=== PATIENT | male | born 1960 | race Caucasian/White ===

== ENCOUNTER 2017-04-12 13:25 | Observation (INO) | payer OTHER ==
[~2017-04-12] VITALS: Ht 172.7 cm; Wt 67.1 kg
[2017-04-12] MEDS ORDERED: Ondansetron 2 mg/mL 2 mL Inj IVPUSH ONE (13:30)
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
[2017-04-12 13:44] LABS: BASOPHILS % (AUTO) 0.3 % (0-3); EOSINOPHILS % (AUTO) 0.5 % (0-5); MONOCYTES % (AUTO) 6.2 % (4-12); Mean Corpuscular Hemoglobin 32.8 pg (27.0-35.0); Mean Corpuscular Volume 92.9 fL (81-100); NEUTROPHILS % (AUTO) 74.5 % (40-74); Platelet Count 189 bil/L (150-400)
[2017-04-12] MEDS ORDERED: TdaP Vaccine 0.5 mL Inj IM ONE (13:45)
[2017-04-12] MEDS ORDERED: Lidocaine-Epi-Tetracaine Solution 3 mL Syringe TOPICAL ONE (13:45)
[2017-04-12 13:58] LABS: INR 0.95 ratio
[2017-04-12] MEDS: fentaNYL-PF 50 mCg/mL 2 mL Inj IVPUSH PRN ×2 (14:00→14:43)
[2017-04-12 14:03] LABS: Magnesium 1.9 mg/dL (1.6-2.6)
--- NOTE | 2017-04-12 14:22 | DRSVH ---
PROCEDURE: CT BRAIN WITHOUT CONTRAST ([id number]) INDICATIONS: trauma TECHNIQUE: Noncontrast 4.5 mm thick angled axial sections acquired from the foramen magnum to the vertex, with c oronal reformats. COMPARISON: None. FINDINGS: Image quality: Excellent. CSF spaces: Basal cisterns are patent. No extra-axial fluid collections. Ventricles are normal in size and shape. Brain: No midline shift. No intracranial masses or hemorrhage. Davila-white matter interface is norm al. Skull and face: Calvarium and visualized facial bones are intact, without suspicious lesions. Sinuses: Visualized sinuses and mastoids are clear except for what is likely chronic opacification o f the right maxillary sinus, which is relatively small when compared to the normal appearance on the left.. IMPRESSION: No bradycardic kable injury found. Forehead contusion to the soft tissues. 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 No skull fracture amandaun d. Dictated by: Remigio Martínez M.D. on 04/12/2017 at 14:19 Approved by: Remigio Martínez M.D. on 04/12/2017 at 14:21
--- NOTE | 2017-04-12 14:24 | DRSVH ---
PROCEDURE: CT CERVICAL SPINE WITHOUT CONTRAST ([id number]) INDICATIONS: trauma TECHNIQUE: Noncontrast 3 mm thick sections acquired from the skull base to the T4 level. Sagittal and coronal r eformats were then constructed. For radiation dose reduction, the following was used: automated exp osure control, adjustment of mA and/or kV according to patient size. COMPARISON: None. FINDINGS: Image quality: Excellent. Bones: No fractures or dislocations. Visualized superior ribs are intact. Soft tissues: Prevertebral soft tissues are normal in thickness. No paravertebral hematomas. No ap ical pneumothoraces. IMPRESSION: Mid cervical moderate degenerative disc disease and mild to moderate spinal stenosis but no fracture or traumatic subluxation is found. Dictated by: Remigio Martínez M.D. on 04/12/2017 at 14:21 Approved by: Remigio Martínez M.D. on 04/12/2017 at 14:22
--- NOTE | 2017-04-12 14:28 | DRSVH ---
PROCEDURE: CT CHEST, ABDOMEN AND PELVIS WITH CONTRAST ([id number]) INDICATIONS: trauma TECHNIQUE: After the administration of intravenous contrast, 5 mm thick sections acquired from the lung apices t o the symphysis. 5 mm thick coronal and sagittal reformats were acquired. Additional 7 mm thick cor onal maximum intensity projection (MIP) reformats acquired through the lungs. Optional 10-minute del ayed imaging may be performed from the kidneys to the bladder. For radiation dose reduction, the fol lowing was used: automated exposure control, adjustment of mA and/or kV according to patient size. COMPARISON: None. FINDINGS: Image quality: Excellent. CHEST: Lungs: No pulmonary contusions or lacerations. No acute airspace opacities. No pneumothorax or hem othorax. Central and peripheral airways appear patent and normal in caliber. Mediastinum: No mediastinal hematomas. Heart size is normal. No pericardial effusion. Thoracic ao rta and pulmonary arteries demonstrate normal size and enhancement. No mediastinal or hilar adenopat hy. Esophagus is normal in caliber. No hiatal hernia. Chest wall: No rib fractures. No subcutaneous emphysema. No axillary or supraclavicular adenopathy . Thyroid gland appears normal. ABDOMEN: Solid organs: Liver and spleen are normal in size and enhancement, without lacerations. Gallbladder appears normal. Biliary system is non-dilated. Pancreas enhances normally, without transection. N o adrenal hematomas. Both kidneys enhance normally, without hydronephrosis or lacerations. Peritoneum and bowel: No free fluid or air. Unenhanced bowel loops demonstrate normal wall thicknes s and caliber. Nodes and vessels: No retroperitoneal or mesenteric adenopathy. Aorta and inferior vena cava are no rmal in size and enhancement. Miscellaneous: No ventral hernias. PELVIS: Genitourinary: Bladder wall thickness is normal. Miscellaneous: No inguinal hernias or adenopathy. Note is made of a moderate degree of degenerative disc disease and facet osteoarthritis at L4-5 with grade 1 prominent anterolisthesis of L4. Bones: Pelvic ring and hip joints appear intact. No vertebral compression fractures. IMPRESSION: No trauma found. Chronic degenerative disc disease and facet osteoarthritis contributes to the presence of grade one anterolisthesis of L4 on L5, but no fracture is found in that area. Dictated by: Remigio Martínez M.D. on 04/12/2017 at 14:23 Approved by: Remigio Martínez M.D. on 04/12/2017 at 14:26
--- NOTE | 2017-04-12 14:32 | DRSVH ---
PROCEDURE: X-RAY RIGHT HAND, MINIMUM THREE VIEWS ([id number]) INDICATIONS: pain TECHNIQUE: 3 views of the hand(s) acquired. COMPARISON: None. FINDINGS: Bones: No dislocations. Carpal bones are normally aligned. No suspicious bony lesions. There are suspected fractures across the proximal metadiaphyseal junctions of the third, fourth and fifth metac arpal bones. Soft tissues: No suspicious soft tissue calcifications. IMPRESSION: Suspect transverse but only minimally displaced fractures are present across the metadiap hyseal junctions of the third, fourth and fifth metacarpal bones. Dictated by: Remigio Martínez M.D. on 04/12/2017 at 14:28 Approved by: Remigio Martínez M.D. on 04/12/2017 at 14:31
[2017-04-12] MEDS ORDERED: Bupivacaine 0.5%/EPI 50 mL Inj INFILTRATE ONE (14:55)
[2017-04-12] MEDS ORDERED: TURM1CAP PO (15:44)
[2017-04-12] MEDS ORDERED: FEXO-106 PO (15:44)
[2017-04-12] MEDS ORDERED: VARD20TA30 PO (15:44)
[2017-04-12] MEDS ORDERED: PSYL480P PO (15:44)
[2017-04-12] MEDS ORDERED: MULT-528 PO (15:44)
[2017-04-12] MEDS ORDERED: OLP.1OP5 BOTH_EYES (15:44)
[2017-04-12] MEDS ORDERED: SERT50TA9 PO (15:44)
[2017-04-12 15:54] LABS: APPEARANCE,URINE CLEAR (CLEAR,HAZY); COLOR,URINE YELLOW (YELLOW); PH,URINE 7.5 (5.0-8.0)
[2017-04-12 15:55] LABS: OCCULT BLOOD,URINE NEGATIVE (NEGATIVE); UROBILINOGEN,URINE NORMAL (NORMAL)
[2017-04-12] MEDS ORDERED: Alum-Mag Hydrox-Simeth 30 mL Suspension PO PRN (16:30)
[2017-04-12] MEDS ORDERED: Ondansetron 2 mg/mL 2 mL Inj IVPUSH PRN (16:30)
[2017-04-12] MEDS ORDERED: 0.9% Sodium Chloride 1,000 ML IV SCH (16:30)
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
[2017-04-12] MEDS ORDERED: Polyethylene Glycol (PEG) 17 Gm Powder PO PRN (16:40)
[2017-04-12 17:15] VITALS: BP 125/82; PULSE 60; RESP 14; O2SAT 99
[2017-04-12] MEDS ORDERED: HYDROcodone-APAP 5-325 mg Tablet PO PRN (17:15)
[2017-04-12 17:42] VITALS: BP 148/88; PULSE 58; RESP 20; O2SAT 100
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
[2017-04-12] MEDS: 0.9% Sodium Chloride 1,000 ML IV SCH (18:06)
--- NOTE | 2017-04-12 19:32 | NUR ---
Arrival to Floor Patient arrives to floor from ED alert and oriented, with complaint of head ache. Ordered IV fluids administered, ordered pain medication administered for head ache. Patient right arm in neville wrap, patient reports good sensation, has movement as well as warm fingertips with brisk capillary refill. Patient denies any shortness of breath, nausea or other difficulty. Care is ongoing.
[2017-04-12 19:53] VITALS: BP 105/68; PULSE 52; RESP 18; O2SAT 97
[2017-04-13 01:18] VITALS: BP 108/68; PULSE 57; RESP 16; O2SAT 96
[2017-04-13 04:43] VITALS: BP 100/65; PULSE 51; RESP 16; O2SAT 97
--- NOTE | 2017-04-13 05:55 | NUR ---
pain Rt hand rated 3, tylenol given and effective. Hand elevated. States Vicodin not needed. Denies dizziness or nausea. Alert / oriented, speech clear, taking clear liq's without difficulty.
[2017-04-13] MEDS: 0.9% Sodium Chloride 1,000 ML IV SCH (06:30)
[2017-04-13 08:25] VITALS: BP 111/67; PULSE 70; RESP 16; O2SAT 98
[2017-04-13] MEDS ORDERED: oxyCODONE-Acetamin 5-325 mg Tablet PO PRN (08:45)
--- NOTE | 2017-04-13 08:50 | PCM.DIMED ---
Discharge Instructions Date of Service Apr 13, 2017 Dates of Hospitalization Apr 12, 2017 at 17:14 Discharge Diagnosis Discharge Diagnosis Brain concussion Mild normocytic anemia right hand 3,4,5th MC base fractures Call your provider Call your provider for: Other (worsening headache, nausea, dizziness, worsening hand pain) Patient Instructions Patient Instructions recommend elbow ROM exercises keep elevated, ice for comfort recommend ulnar gutter splint Follow-up with PCP in: 1 week [facility] Additional Information See your orthopedist in 1-2 weeks with x-rays prior Tiffany Aldana MD Apr 13, 2017 08:50
[2017-04-13] MEDS ORDERED: OXYC1TAB24 PO (08:52)
[2017-04-13 11:23] VITALS: BP 109/69; PULSE 49; RESP 16; O2SAT 98
--- NOTE | 2017-04-13 11:50 | NUR ---
Discharge Pt to discharge to home with his ; pain at tolerable level, per pt "no need for PO Oxycodone". VSS, R arm in neville wrap with splint, CAP refill good and sensation ends of fingers, able to move all other extremities, helping pt get dressed. Pt and given written and discharge instructions along with Care Notes for Concussion and Hand Fracture to which they both state understanding. Pt has original Rx for Oxycodone for pain, instructed to take as prescribed, to which pt and both state understanding. Pt and educated on s/s of concussion and fracture worsening to which they state verbal understanding and encourage to seek medical care if this happens. All personal belongings with pt and at time of discharge. Pt wheeled off unit by jono. Addendum: 04/13/17 at 1507 by VINOD LAWTON RN Pt discharged at 12:15pm; 1 IV access discontinued.
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
== END 2017-04-13 12:29 | disposition home or self-care (01) ==
LOC: SED 13:25 → EDBD 13:25 → OSC 17:14
PROVIDERS: ADMIT Internal Medicine; ATTEND Internal Medicine
DX: S06.0X1A Concussion with loss of consciousness of 30 minutes or less, initial encounter (principal); S62.314A Displaced fracture of base of fourth metacarpal bone, right hand, initial encounter for closed fracture; S62.316A Displaced fracture of base of fifth metacarpal bone, right hand, initial encounter for closed fracture; S01.511A Laceration without foreign body of lip, initial encounter; V13.4XXA Pedal cycle driver injured in collision with car, pick-up truck or van in traffic accident, initial encounter; Y92.410 Unspecified street and highway as the place of occurrence of the external cause; Y93.55 Activity, bike riding; Y99.8 Other external cause status; S20.211A Contusion of right front wall of thorax, initial encounter; D64.9 Anemia, unspecified; Z23 Encounter for immunization
CPT/HCPCS: 12011; 36415; 70450; 71260; 72125; 73130; 74177; 80053; 81001; 83735; 85014; 85018; 85025; 85610; 85730; 86850; 90471; 90715; 93005; 96374; 96375; 96376; 99285; G0378; G0390; G0480; J2405; J3010; J7030; Q9967